=== PATIENT | male | born 1965 | race African-American/Black ===

== ENCOUNTER 2018-06-11 17:23 | Emergency (ER) | payer OTHER ==
[~2018-06-11] VITALS: Ht 185.4 cm; Wt 89.0 kg
[2018-06-11 17:32] VITALS: BP 163/111; PULSE 90; RESP 18; Ht 185.4 cm; Wt 89.0 kg
[2018-06-11] MEDS ORDERED: HYDROCODONE/APAP (5/325) TAB PO ONE (18:30)
[2018-06-11] MEDS ORDERED: FLUORESCEIN STRIP LEFT EYE ONE (18:30)
[2018-06-11] MEDS ORDERED: IBUPROFEN 600 MG TAB PO ONE (18:30)
[2018-06-11] MEDS ORDERED: CIPROFLOXACIN 0.3% 2.5 ML OPH LEFT EYE ONE (18:30)
[2018-06-11] MEDS ORDERED: IBUP-1542 PO (19:17)
[2018-06-11] MEDS ORDERED: HYDR-4011 PO (19:17)
[2018-06-11] MEDS ORDERED: CPR3OO3.5 LEFT EYE (19:17)
--- NOTE | 2018-06-11 19:21 | ERD ---
ER Documentation Chief Complaint Chief Complaint POSS LEFT EYE FOREIGN BODY/CONTACT WITH DISCHARGE HPI This 52-year-old male presents with pain in his left eye since yesterday. He feels it may have a contact in his left eye. He is uncertain if you remove the entire contact. He does admit to not properly cleaning his contacts or wearing them longer than usual. He is able to see although vision is blurry and the light is bothering him in the left eye. ROS All systems reviewed and are negative except as per history of present illness. Medications Home Meds Active Scripts Ibuprofen* (Motrin*) 600 Mg Tab, 600 MG PO Q6, #20 TAB Prov:MAMIE ELIZABETH MD 06/11/18 Hydrocodone/Acetaminophen ([place] 5-325 Tablet) 1 Each Tablet, 1 TAB PO Q6H PRN for PAIN, #7 TAB Prov:MAMIE ELIZABETH MD 06/11/18 Ciprofloxacin Opht* (Ciloxan*) 0.3%-3.5 Opht Oint, 1 APPLIC LEFT EYE 5 TIMES DAILY for 7 Days, EA Prov:MAMIE ELIZABETH MD 06/11/18 FmHx Family History: No diabetes, No coronary disease, No other Physical Exam Vitals Vital Signs Date Temp Pulse Resp B/P (MAP) Pulse Ox O2 O2 Flow FiO2 Time Delivery Rate 06/11/18 98.1 90 18 163/111 99 17:32 (128) Physical Exam Const: No acute distress Head: Atraumatic Eyes: Left scleral and conjunctival mild swelling. There is a visible corneal ulcer at 6:00 centrally in the left cornea. There is no hypopyon. There is no proptosis, and extraocular movements intact and eyes Jean. No significant floor seen uptake. Patient is able to see fingers at 10 feet. Exam limited by photophobia. ENT: Normal External Ears, Nose and Mouth. Neck: Full range of motion. No meningismus. Resp: Clear to auscultation bilaterally Cardio: Regular rate and rhythm, no murmurs Abd: Soft, non tender, non distended. Normal bowel sounds Skin: No petechiae or rashes Back: No midline or flank tenderness Ext: No cyanosis, or edema Neur: Awake and alert Psych: Normal Mood and Affect Results 24 hrs Current Medications Medications Dose Sig/Yohana Start Time Status Last (Trade) Ordered Route PRN Stop Time Admin Dose Reason Admin Fluorescein 1 strip ONCE ONCE 06/11/18 DC Sodium LEFT EYE 18:30 ([id number] 06/11/18 18:31 p) 2 drop ONCE ONCE 06/11/18 DC 06/11/18 Ciprofloxacin LEFT EYE 18:30 18:59 HCl 06/11/18 18:31 (Ciloxan 0.3% Oph) 1 tab ONCE ONCE 06/11/18 DC 06/11/18 Acetaminophen PO 18:30 18:40 / 06/11/18 18:31 Hydrocodone Bitart ([place] (5/325)) Ibuprofen 600 mg ONCE ONCE 06/11/18 DC 06/11/18 (Motrin) PO 18:30 18:40 06/11/18 18:31 Procedures/MDM Patient has signs and symptoms of acute left corneal ulcer likely due to contact lens use. Patient was dispensed Cipro eyedrops and instructed to use 1 drop every hour for the next 24 hours. He is advised to see ophthalmology in the morning. He was given resources for this. Patient was advised on risk of perma nent vision damage for not appearing to outpatient recommendations. She has no signs or symptoms of orbital cellulitis, retinal artery occlusion, signs or symptoms to suggest additional eye emergencies although follow-up and return precautions advised. Departure Diagnosis: Primary Impression: Corneal ulcer Patient Instructions: Corneal Injury, Contact Lens, Corneal Ulcer Referrals: [facility] Hours: Mon - Fri 9:00 AM - 5:00 PM Additional Instructions: See ophthalmology tomorrow. Unable to see contact lens although symptoms likely from corneal infection. Recheck otherwise for new or worsening symptoms. MAMIE ELIZABETH MD Jun 11, 2018 19:21
== END 2018-06-11 19:48 | disposition home or self-care (01) ==
LOC: FTE 17:23
DX: H16.002 Unspecified corneal ulcer, left eye (principal)
CPT/HCPCS: Z7502; Z7610; 99283